=== PATIENT | female | born 1950 | race Caucasian/White ===

== ENCOUNTER → 2017-10-17 | Outpatient (CLI) | payer MEDICARE ==
[~2017-10-17] MED LIST: OMNIPAQUE 350 MG/ML, 100ML BOTTLE ONE
== END | disposition home or self-care (01) ==
LOC: CFH 11:10
PROVIDERS: ATTEND Nurse Practitioner Primary Care
DX: D18.03 Hemangioma of intra-abdominal structures (principal); K57.30 Diverticulosis of large intestine without perforation or abscess without bleeding; N83.201 Unspecified ovarian cyst, right side; I70.0 Atherosclerosis of aorta; K76.89 Other specified diseases of liver; E27.8 Other specified disorders of adrenal gland; M51.06 Intervertebral disc disorders with myelopathy, lumbar region; M47.896 Other spondylosis, lumbar region; Z90.49 Acquired absence of other specified parts of digestive tract
CPT/HCPCS: 74177; 82565; Q9967

== ENCOUNTER → 2017-11-10 | Outpatient (CLI) | payer MEDICARE | END | disposition home or self-care (01) | LOC: LAB 16:36 | PROVIDERS: ATTEND Internal Medicine Gastroenterology | DX: K76.89 Other specified diseases of liver (principal); R19.09 Other intra-abdominal and pelvic swelling, mass and lump; R94.5 Abnormal results of liver function studies | CPT/HCPCS: 36415; 86803 ==

== ENCOUNTER → 2017-11-13 | Outpatient (CLI) | payer MEDICARE | LOC: CFH 14:50 | PROVIDERS: ATTEND Internal Medicine Gastroenterology | DX: Z02.9 Encounter for administrative examinations, unspecified (principal) ==

== ENCOUNTER → 2021-02-07 | Outpatient (CLI) | payer MEDICARE | END | disposition home or self-care (01) | LOC: RAD 14:29 | PROVIDERS: ATTEND Nurse Practitioner Primary Care | DX: G93.89 Other specified disorders of brain (principal); G44.85 Primary stabbing headache; Z86.79 Personal history of other diseases of the circulatory system; Z98.890 Other specified postprocedural states | CPT/HCPCS: 70551 ==